=== PATIENT | female | born 1945 | race Caucasian/White ===

== ENCOUNTER → 2016-06-11 | Outpatient (CLI) | payer OTHER ==
[~2016-06-11] MED LIST: ALBUTEROL INHALER; ATENOLOL; ATENOLOL50 MG PO; CELEXA20 MG PO; DILANTIN; DILANTIN PO; DYAZIDE 37.5/251 CAP PO; ESOMEPRAZOLE MA20 MG; EVISTA60 MG; EVISTA60 MG PO; FOSAMAX40 MG PO; HUGO FOLDING WA1 PKT MC; HYDROCHLOROTHIA25 MG PO; KEFLEX500 M1 PO; LEXAPRO; NEXIUM; PHENOBARB PO; PRILOSEC20 MG PO; PROTONIX PO; PROVENTIL INH0.5 ML NEB; ZOFRAN ODT4 MG PO
--- NOTE | ~2016-06-11 | MY11 ---
[facility] A Service of [facility] RADIOLOGY TEXT RESULTS PATIENT: ANTONY ADAMES LOCATION: [facility] : 45 UNIT #: [id number] AGE: [address]: Bhupinder Michael MD SEX: F ORDER DR: [id number] [facility] [address] [place], [place] [address] [id number] O MR#: [id number] Acc #: [id number] NAME: ANTONY ADAMES : 1945 SEX: F STUDY DATE/TIME: 06/11/2016 11:27 UNIT: [facility] ROOM: STUDY DESCRIPTION: MY Mammogram Screening Dig New Attending Physician: Bhupinder Michael M.D. Ordering Physician: Bhupinder Michael M.D. Primary Care Physician: Bhupinder Michael M.D. MEDICAL IMAGING REPORT This report is preliminary unless electronic signature is present EXAM Digital screening mammogram, 06/11/2016, [facility]. HISTORY 71-year-old woman no risk elevation. Previous right breast biopsy. Annual screen. COMPARISON Mammograms date to 02/25/2006 with most recent 10/12/2014. TECHNIQUE Digital imaging of each breast was completed utilizing screening protocol. Review includes FDA-approved CAD device. FINDINGS Breast parenchyma is predominantly fatty replaced. Subareolar duct prominence and right subareolar nodularity are both stable. There is no interval occurring mass. There are no suspicious microcalcifications and no architectural disturbance. IMPRESSION Stable benign mammogram. Annual screening recommended. Patients over the age of 40 are entered into a reminder system with target due date for the next mammogram. A result letter will also be sent to the patient. BIRADS: 2 Benign finding. Dictated by... Memo Funes M.D. [facility] A Service [facility] RADIOLOGY TEXT RESULTS PATIENT: ANTONY ADAMES LOCATION: [facility] : 45 UNIT #: [id number] AGE: [address]: Bhupinder Michael MD SEX: F ORDER DR: THIS IS AN ELECTRONICALLY VERIFIED REPORT Memo Funes M.D. at 06/11/2016 1:32 PM KRISHAN/joel TD: 06/11/2016 12:25 JOB #: [id number] MEDICAL IMAGING REPORT Page 1 of 1 COPY
== END | disposition home or self-care (01) ==
LOC: CWCC 11:07
DX: Z12.31 Encounter for screening mammogram for malignant neoplasm of breast (principal)
CPT/HCPCS: G0202

== ENCOUNTER → 2016-09-04 | Outpatient (CLI) | payer OTHER ==
--- NOTE | ~2016-09-04 | PFT ---
[id number] [facility] [address] [place], [place] [address] [id number] O MR#: [id number] NAME: ANTONY ADAMES ROOM: SEX: F STUDY DATE/TIME: 09/04/2016 : 1945 AGE: 71 STUDY DESCRIPTION: Attending Physician: Bhupinder Michael M.D. Referring Physician: Bhupinder Michael M.D. Primary Care Physician: Bhupinder Michael M.D. PULMONARY DIAGNOSTIC REPORT EXAM Pulmonary function test Spirometry is suggestive of a mild to moderate restrictive defect. There is no significant response to bronchodilators. Flow volume loop is consistent with a restrictive defect. Lung volumes confirm a restrictive defect with a total lung capacity of 70%. Diffusion capacity is very severely reduced at 33% suggesting an intrinsic pulmonary defect such as pulmonary fibrosis. Dictated by... Sarah Torres/renzo TD: 09/05/2016 16:45 JOB #: [id number] PULMONARY DIAGNOSTIC REPORT Page 1 of 1
== END | disposition home or self-care (01) ==
LOC: CRC 10:42
DX: J44.9 Chronic obstructive pulmonary disease, unspecified (principal)
CPT/HCPCS: 94060; 94726; 94729

== ENCOUNTER → 2016-10-25 | Outpatient (CLI) | payer OTHER ==
--- NOTE | ~2016-10-25 | CT55 ---
[facility] A Service of [facility] RADIOLOGY TEXT RESULTS PATIENT: ANTONY ADAMES LOCATION: [facility] : 45 UNIT #: [id number] AGE: [address]: Bhupinder Michael MD SEX: F ORDER DR: [id number] [place] [id number] [facility] [place], [place] [address] [id number] O MR#: [id number] Acc #: [id number] NAME: ANTONY ADAMES : 1945 SEX: F STUDY DATE/TIME: 10/25/2016 14:31 UNIT: [facility] ROOM: STUDY DESCRIPTION: CT Chest W Con Attending Physician: Bhupinder Michael M.D. Referring Physician: Bhupinder Michael M.D. Ordering Physician: Bhupinder Michael M.D. Primary Care Physician: Bhupinder Michael M.D. MEDICAL IMAGING REPORT This report is preliminary unless electronic signature is present EXAM CT chest. INDICATIONS Shortness of air, cough, and congestion since February 28, 2016. COPD. TECHNIQUE CT of the chest utilizing 70 mL Isovue-370 IV contrast. Coronal and sagittal reconstructions were obtained. This CT exam was performed with one or more of the following radiation dose reduction techniques: Automatic exposure control, adjustment of mA and/or kV according to patient size, and iterative reconstruction. COMPARISON None available. FINDINGS There is moderate emphysema throughout both lungs. There are a few patchy ground-glass densities in the lungs which may reflect an acute inflammatory/infectious process. There is no dense consolidation. No pericardial or pleural effusion. There is abnormal mediastinal and bilateral hilar lymphadenopathy. There is a precarinal lymph node measuring 2.4 x 1.7 cm. A right suprahilar lymph node measures 2.5 x 1.6 cm. A left infrahilar lymph node measures 1.1 cm in short axis. No pericardial pleural effusion. Thoracic aorta is normal in caliber. There is mild cardiac enlargement. Limited images of the upper abdomen were obtained. Several calcified gallstones are noted. There is a small left adrenal adenoma. [facility] A Service of [facility] RADIOLOGY TEXT RESULTS PATIENT: ANTONY ADAMES LOCATION: [facility] : 45 UNIT #: [id number] AGE: [address]: Bhupinder Michael MD SEX: F ORDER DR: No acute osseous abnormalities. IMPRESSION 1. COPD and chronic interstitial opacities. 2. Mild patchy ground-glass densities in both lungs. This may represent acute inflammatory infectious process. Please correlate with clinical symptoms. 3. Abnormal mediastinal and hilar lymphadenopathy. This may be reactive, however follow up chest CT in 3-6 months would be recommended to further evaluate and exclude a metastatic process. 4. Cholelithiasis. Dictated by... Jarrett Issa M.D. THIS IS AN ELECTRONICALLY VERIFIED REPORT Jarrett Issa M.D. at 10/26/2016 8:23 AM MECHELLE/geovanny TD: 10/26/2016 07:35 JOB #: [id number] MEDICAL IMAGING REPORT Page 1 of 1 COPY
[2016-10-25 16:31] LABS: POC - CREATININE 0.81 mg/dL (0.44-1.03); POC - GFR >60.0 mL/min (>60)
== END | disposition home or self-care (01) ==
LOC: CCAT 13:04
PROVIDERS: Internal Medicine
DX: J98.4 Other disorders of lung (principal); J44.9 Chronic obstructive pulmonary disease, unspecified
CPT/HCPCS: 71260; 82565; Q9967